=== PATIENT | female | born 1995 | race Two or more races ===

== ENCOUNTER 2020-06-15 08:45 | Emergency (ER) | payer OTHER ==
[~2020-06-15] VITALS: Ht 160 cm; Wt 61.3 kg
--- NOTE | 2020-06-15 09:13 | NUR ---
PT AMBULATED TO ROOM FROM TRIAGE. PT CO 6/10 EPIGASTIC PAIN THAT STARTED 2 DAYS AGO. PT STATED THAT SHE FEELS NAUSEOUS, BUT HAS NOT BEEN VOMITING. PT STATED THAT HER BM HAVE BEEN REGULAR AND DENIES ANY BLOOD IN URINE OR STOOL. PT DENIES ANY FEVER.
[2020-06-15] MEDS ORDERED: MAALOX/HYOSCYAMINE/LIDOCAINE 45 ML BTL ONE (09:44)
[2020-06-15] MEDS ORDERED: MAALOX/HYOSCYAMINE/LIDOCAINE 45 ML BTL PO ONE (10:00)
[2020-06-15 10:14] LABS: BASOPHILS % (AUTO) 1 % (0-1); EOSINOPHILS % (AUTO) 0 % (1-7); LYMPHOCYTES % (AUTO) 33 % (22-44); MEAN CORPUSCULAR HEMOGLOBIN 31.5 pg (27.0-34.8); MEAN CORPUSCULAR HGB CONC 33.5 g/dL (32.4-35.8); MEAN PLATELET VOLUME 9.2 fL (7.4-10.4); MONOCYTES % (AUTO) 7 % (2-9); NEUTROPHILS % (AUTO) 58 % (42-75); PLATELET COUNT 253 x10^3/uL (130-400); RED BLOOD COUNT 4.16 x10^6/uL (3.82-5.3); RED CELL DISTRIBUTION WIDTH 13.9 % (9.6-15.2)
[2020-06-15 10:15] LABS: MD NO
[2020-06-15 10:27] LABS: ALBUMIN 4.3 g/dL (3.4-5.0); ANION GAP 3 mmol/L (5-15); CALCIUM 9.6 mg/dL (8.5-10.1); CHLORIDE 108 mmol/L (98-107)
[2020-06-15 10:30] VITALS: BP 115/62
--- NOTE | 2020-06-15 10:31 | NUR ---
PT RESTING COMFORTABLY. CALL LIGHT WITHIN REACH.
[2020-06-15 10:33] LABS: ALANINE AMINOTRANSFERASE 17 U/L (12-78); ALKALINE PHOSPHATASE 57 U/L (45-117); BILIRUBIN,TOTAL 0.7 mg/dL (0.2-1.0); CREATININE 0.91 mg/dL (0.55-1.02); TOTAL PROTEIN 8.2 g/dL (6.4-8.2)
--- NOTE | 2020-06-15 11:23 | NUR ---
DISCHARGE INSTRUCTIONS REVIEWED WITH PT. ALL QUESTIONS ANSWERED AT THIS TIME.
== END 2020-06-15 11:26 | disposition home or self-care (01) ==
LOC: ED 09:41
DX: K25.3 Acute gastric ulcer without hemorrhage or perforation (principal); R10.13 Epigastric pain; R11.0 Nausea
CPT/HCPCS: 36415; 80053; 83690; 84703; 85025; 99283